=== PATIENT | female | born 1995 | race Two or more races ===

== ENCOUNTER → 2017-07-08 | Outpatient (REF) | payer OTHER | LOC: M SFHCLERA 16:24 | DX: J02.9 Acute pharyngitis, unspecified (principal) ==

== ENCOUNTER → 2017-07-08 | Outpatient (CLI) | payer OTHER ==
[2017-07-08 09:37] LABS: THYROID STIMULATING HORMONE 0.802 uIU/ML (0.358-3.740)
[2017-07-08 09:47] LABS: ESTRADIOL 52.4 PG/ML
[2017-07-08 09:47] LABS: PROGESTERONE 18.4 NG/ML
== END ==
LOC: M LAB 08:41
DX: Z31.49 Encounter for other procreative investigation and testing (principal)

== ENCOUNTER → 2017-07-15 | Outpatient (CLI) | payer OTHER ==
[2017-07-15 09:00] LABS: HCG, SERUM QUANTITATIVE < 1.0 MIU/ML
[2017-07-15 09:32] LABS: PROGESTERONE 4.7 NG/ML
== END ==
LOC: M LAB 08:07
DX: Z32.00 Encounter for pregnancy test, result unknown (principal)

== ENCOUNTER → 2017-08-05 | Outpatient (CLI) | payer OTHER ==
[2017-08-05 09:30] LABS: THYROID STIMULATING HORMONE 0.918 uIU/ML (0.358-3.740)
[2017-08-05 09:53] LABS: PROGESTERONE 14.7 NG/ML
[2017-08-05 09:53] LABS: ESTRADIOL 79.7 PG/ML
== END ==
LOC: M LAB 08:13
DX: E28.9 Ovarian dysfunction, unspecified (principal)
CPT/HCPCS: 84443

== ENCOUNTER → 2017-08-12 | Outpatient (CLI) | payer OTHER ==
[2017-08-12 08:46] LABS: HCG, SERUM QUANTITATIVE 90 MIU/ML
[2017-08-12 09:17] LABS: PROGESTERONE 34.2 NG/ML
== END ==
LOC: M LAB 07:21
DX: E28.9 Ovarian dysfunction, unspecified (principal)

== ENCOUNTER → 2017-08-14 | Outpatient (CLI) | payer OTHER ==
[2017-08-14 08:14] LABS: HCG, SERUM QUANTITATIVE 231 MIU/ML
[2017-08-14 08:50] LABS: ESTRADIOL 232.6 PG/ML
[2017-08-14 08:50] LABS: PROGESTERONE 30.1 NG/ML
== END ==
LOC: M LAB 07:12
DX: Z32.01 Encounter for pregnancy test, result positive (principal)
CPT/HCPCS: 84443

== ENCOUNTER → 2017-09-30 | Outpatient (CLI) | payer OTHER ==
[2017-09-30 13:32] LABS: BASO % 0.4 % (0.0-1.0); EOS % 0.3 % (0.0-3.0); HEMATOCRIT 38.1 % (36.0-47.0); IMMATURE GRANULOCYTE % 0.4 % (0-3.0); LYMPH # 2.6 10^3/uL (1.5-6.5); LYMPH % 28.3 % (24.0-44.0); MEAN CORPUSCULAR HEMOGLOBIN 30.6 pg (27.0-33.0); MEAN CORPUSCULAR HGB CONC 34.1 g/dl (32.0-36.5); MEAN CORPUSCULAR VOLUME 89.6 fl (80.0-96.0); MONO # 0.5 10^3/uL (0.0-0.8); MONO % 5.3 % (0.0-5.0); NEUTROPHILS # 5.9 10^3/uL (1.8-7.7); NEUTROPHILS % 65.3 % (36.0-66.0); PLATELET COUNT, AUTOMATED 281 10^3/uL (150-450); RED BLOOD COUNT 4.25 10^6/uL (4.00-5.40); RED CELL DISTRIBUTION WIDTH 12.5 % (11.5-14.5); WHITE BLOOD COUNT 9.1 10^3/uL (4.0-10.0)
[2017-09-30 15:04] LABS: CHLAMYDIA DNA AMPLIFICATION NEGATIVE (NEGATIVE); GC DNA AMPLIFICATION NEGATIVE (NEGATIVE)
[2017-10-01 08:58] LABS: RUBELLA IgG QUALITATIVE IMMUNE (IMMUNE)
[2017-10-01 09:19] LABS: HBsAg Prenatal NEGATIVE (NEGATIVE)
[2017-10-01 09:27] LABS: HEPATITIS C VIRUS ABY INDEX < 0.0 INDEX (<0.8)
[2017-10-01 09:28] LABS: HIV 1&2 SCREEN CENTAUR NEGATIVE (NEGATIVE)
== END ==
LOC: M SMT 12:12
DX: Z36.89 Encounter for other specified antenatal screening (principal); Z3A.11 11 weeks gestation of pregnancy
CPT/HCPCS: 86762

== ENCOUNTER → 2017-10-21 | Outpatient (CLI) | payer OTHER | LOC: M SMT 13:35 | DX: Z31.438 Encounter for other genetic testing of female for procreative management (principal) ==

== ENCOUNTER 2018-04-20 05:00 | Inpatient (IN) | payer OTHER ==
[2018-04-20 06:13] LABS: HEMATOCRIT 42.3 % (36.0-47.0); HEMOGLOBIN 14.6 g/dl (12.0-15.5); MEAN CORPUSCULAR HEMOGLOBIN 31.9 pg (27.0-33.0); MEAN CORPUSCULAR HGB CONC 34.5 g/dl (32.0-36.5); MEAN CORPUSCULAR VOLUME 92.6 fl (80.0-96.0); PLATELET COUNT, AUTOMATED 202 10^3/uL (150-450); RED BLOOD COUNT 4.57 10^6/uL (4.00-5.40); WHITE BLOOD COUNT 7.7 10^3/uL (4.0-10.0)
[2018-04-20] MEDS ORDERED: FENTANYL 2MCG/ML ROPIVACAINE 0.2% IN 0.9% NACL 200ML IVBAG As Ordered (06:21)
[2018-04-20] MEDS: OXYTOCIN DRIP 30 UNITS in APPROPRIATE DILUENT 1 EA IV ×2 (07:20→13:15)
[2018-04-20] MEDS: LACTATED RINGER'S 1000 ML IV (07:20)
[2018-04-20] MEDS: FENTANYL/ROPIVACAINE/NACL BAG 200 ML EPIDURAL (07:30)
[2018-04-20] MEDS ORDERED: REFRIGERATOR IV KEYS XX (07:30)
[2018-04-20] MEDS ORDERED: NALOXONE INJ 0.4 MG/1 ML VIAL (J2310) IV (07:30)
[2018-04-20] MEDS ORDERED: EPIDURAL COMMENT XX (07:30)
[2018-04-20] MEDS ORDERED: LACTATED RINGER'S 1000 ML IV (07:30)
[2018-04-20] MEDS ORDERED: ePHEDrine SULFATE 25 MG/5 ML(5MG/ML) SYRINGE IV (07:30)
[2018-04-20] MEDS ORDERED: diphenhydrAMINE INJ 50MG/ML VIAL (J1200) IV (07:30)
[2018-04-20] MEDS ORDERED: EPIDURAL/PCA KEYS XX (07:30)
[2018-04-20] MEDS ORDERED: ONDANSETRON 4MG/2ML VIAL (J2405) IV ×2 (07:30→13:15)
[2018-04-20] MEDS: LR 1,000 ML IV (09:05)
[2018-04-20] MEDS: ACETAMINOPHEN 500 MG TAB PO ×2 (10:05→19:26)
[2018-04-20 10:30] LABS: HBSAG L&D NEGATIVE (NEGATIVE)
[2018-04-20] MEDS ORDERED: DOCUSATE SODIUM 100 MG CAP PO (13:15)
[2018-04-20] MEDS ORDERED: METHYLERGONOVINE MALEATE 0.2 MG TAB PO (13:15)
[2018-04-20] MEDS: IBUPROFEN 800 MG TAB PO (17:30)
[2018-04-20] MEDS: DIBUCAINE 1% OINTMENT 30GM TOP (19:20)
[2018-04-20] MEDS: MIRALAX *UNIT DOSE* 17GM PACKET PO (21:16)
[2018-04-21] MEDS: IBUPROFEN 800 MG TAB PO (05:12)
[2018-04-21] MEDS: RHOGAM 300 MCG (1500 IU) INJ (J2790) IM (07:14)
[2018-04-21] MEDS: MEASLES,MUMPS,RUBELLA VACCINE INJ (MMR-II) (90707) SC (07:15)
[2018-04-21] MEDS: PRENATAL VITAMINS CHEWABLE TABLET PO (07:40)
[2018-04-21] MEDS: MIRALAX *UNIT DOSE* 17GM PACKET PO ×2 (07:40→20:41)
[2018-04-21] MEDS: ACETAMINOPHEN 500 MG TAB PO (16:11)
[2018-04-22] MEDS: IBUPROFEN 800 MG TAB PO (04:13)
[2018-04-22] MEDS: PRENATAL VITAMINS CHEWABLE TABLET PO (08:39)
[2018-04-22] MEDS: MIRALAX *UNIT DOSE* 17GM PACKET PO (08:39)
[2018-04-22] MEDS: ACETAMINOPHEN 500 MG TAB PO (09:01)
== END 2018-04-22 10:40 | disposition home or self-care (01) | DRG 807 ==
LOC: M LDO 05:00 → M LDI 05:33 → M OBS 14:38
PROVIDERS: Advanced Practice Midwife
PROC: 10D07Z6 Extraction of Products of Conception, Vacuum, Via Natural or Artificial Opening (ICD-10-PCS; principal; 2018-04-20)
PROC: 0HQ9XZZ Repair Perineum Skin, External Approach (ICD-10-PCS; 2018-04-20)
DX: O45.93 Premature separation of placenta, unspecified, third trimester (principal); Z37.0 Single live birth; Z3A.39 39 weeks gestation of pregnancy; O76 Abnormality in fetal heart rate and rhythm complicating labor and delivery; O70.0 First degree perineal laceration during delivery